=== PATIENT | male | born 1995 | race Caucasian/White ===

== ENCOUNTER 2025-04-02 22:05 | Outpatient (CLI) | payer OTHER, SELFPAY | END 2025-04-02 22:06 | disposition home or self-care (01) | LOC: AMB 04-09 14:04 | PROVIDERS: Visit Provider Emergency Medicine | DX: S09.90XA Unspecified injury of head, initial encounter (principal); S79.911A Unspecified injury of right hip, initial encounter; S59.901A Unspecified injury of right elbow, initial encounter; V86.55XA Driver of 3- or 4- wheeled all-terrain vehicle (ATV) injured in nontraffic accident, initial encounter; Y92.410 Unspecified street and highway as the place of occurrence of the external cause | CPT/HCPCS: A0425; A0433 ==